=== PATIENT | female | born 2000 | race Caucasian/White ===

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

== ENCOUNTER 2018-07-11 17:52 | Emergency (ER) | payer MEDICAID ==
[2018-07-11] MEDS ORDERED: AMOX/CLAV 875 MG/125 MG TABLET PO STA (19:09)
--- NOTE | 2018-07-11 19:11 | ED Physician Documentation ---
PD HPI SKIN - Stated complaint Stated Complaint: LUMP UNDER L ARM - Chief complaint Chief Complaint: Wound - History obtained from History obtained from: Patient - History of Present Illness Timing - onset: Today (Painful lump in the left axilla today. She has a history of cystic acne. No possibility of .) Review of Systems Constitutional: reports: Reviewed and negative Nose: reports: Reviewed and negative Throat: reports: Reviewed and negative PD PAST MEDICAL HISTORY - Past Medical History Past Medical History: No - Past Surgical History Past Surgical History: No - Present Medications Home Medications: Ambulatory Orders Medication Instructions Recorded Confirmed Amox/Clav 875/125 [Augmentin 1 tab PO BID 10 Days #20 tablet 07/11/18 875/125] Levothyroxine [Synthroid] 150 mcg PO QDAC 07/11/18 07/11/18 - Allergies Allergies/Adverse Reactions: Allergies Allergy/AdvReac Type Severity Reaction Status Date / Time No Known Drug Allergies Allergy Verified 07/11/18 18:00 - Social History Does the pt smoke?: Yes Smoking Status: Current every day smoker Does the pt drink ETOH?: No Does the pt have substance abuse?: No - Immunizations Immunizations are current?: Yes - POLST Patient has POLST: No PD ED PE NORMAL - Vitals Vital signs reviewed: Yes - General General: Alert and oriented X 3, No acute distress - Derm Derm: Other (In the left axilla there is an open draining cyst which is tiny, too small for formal incision and drainage, small amount of material was expressed and sent for culture during exam.) - Neuro Neuro: Alert and oriented X 3, Normal speech Results - Vitals Vitals: Vital Signs - 24 hr 07/11/18 17:58 Temperature 36.2 C L Heart Rate 80 Respiratory 15 Rate Blood Pressure 149/91 H O2 Saturation 99 Oxygen O2 Source Room air Departure - Departure Disposition: Home, Self Care Clinical Impression: Sebaceous cyst of left axilla Condition: Good Record reviewed to determine appropriate education?: Yes Instructions: ED Staph Infec Abx Tx Only Prescriptions: Amox/Clav 875/125 [Augmentin 875/125] 1 tab PO BID 10 Days #20 tablet Comments: Return for reevaluation if it gets bigger or worsens. Especially if you run a fever. We are performing a wound culture, the results should be done in 48-72 hours. If antibiotic change is necessary we will call you. Return if worse in the meantime, especially if you develop increased pain, fevers, cannot keep down the medication. Otherwise follow-up with your physician in approximately 2-3 days. Your blood pressure was elevated today on check into the emergency department. This does not mean that you have hypertension, it is a common phenomenon to come to the emergency department and have elevated blood pressure. I recommend that you see your primary care physician within the week to have it rechecked when you are feeling better.
[2018-07-11 19:27] VITALS: BP 118/68
== END 2018-07-11 19:28 | disposition home or self-care (01) ==
LOC: ED 17:52
DX: L72.3 Sebaceous cyst (principal); R03.0 Elevated blood-pressure reading, without diagnosis of hypertension; F17.200 Nicotine dependence, unspecified, uncomplicated
CPT/HCPCS: 87070; 87205; 99283; A9270

== ENCOUNTER 2018-09-20 16:05 | Emergency (ER) | payer MEDICAID ==
--- NOTE | 2018-09-20 16:18 | ED Physician Documentation ---
History of Present Illness - Stated complaint Stated Complaint: FEM - Chief complaint Chief Complaint: General - History obtained from History obtained from: Patient - History of Present Illness Timing: Today (Urinary frequency and dysuria started today without flank pain, fevers, or nausea. Feels like a bladder infection. She also has hematuria. Last UTI was a little over a year ago.) Review of Systems Constitutional: denies: Fever, Chills GI: denies: Abdominal Pain, Nausea, Vomiting PD PAST MEDICAL HISTORY - Past Surgical History Past Surgical History: No - Present Medications Home Medications: Ambulatory Orders Medication Instructions Recorded Confirmed Amox/Clav 875/125 [Augmentin 1 tab PO BID 10 Days #20 tablet 07/11/18 875/125] Levothyroxine [Synthroid] 150 mcg PO QDAC 07/11/18 07/11/18 Nitrofurantoin Monohyd/M-Cryst 100 mg PO BID #10 capsule 09/20/18 [Macrobid 100 mg Capsule] Phenazopyridine HCl [Pyridium] 200 mg PO TID PRN #6 tablet 09/20/18 - Allergies Allergies/Adverse Reactions: Allergies Allergy/AdvReac Type Severity Reaction Status Date / Time No Known Drug Allergies Allergy Verified 09/20/18 16:11 - Social History Does the pt smoke?: Yes Smoking Status: Current every day smoker Does the pt drink ETOH?: No Does the pt have substance abuse?: No - Immunizations Immunizations are current?: Yes - POLST Patient has POLST: No PD ED PE NORMAL - Vitals Vital signs reviewed: Yes - General General: Alert and oriented X 3, No acute distress - Abdomen Abdomen: Soft, Non tender - Back Back: No CVA TTP - Neuro Neuro: Alert and oriented X 3, Normal speech Results - Vitals Vitals: Vital Signs - 24 hr 09/20/18 16:10 Temperature 36.8 C Heart Rate 86 Respiratory 16 Rate Blood Pressure 132/79 H O2 Saturation 96 Oxygen O2 Source Room air - Labs Labs: Laboratory Tests 09/20/18 16:15 Urine Color RED/BLOODY Urine Clarity BLOODY Urine pH 6.0 Ur Specific [place] >=1.030 H Urine Protein 100 H Urine Glucose (UA) NEGATIVE Urine Ketones NEGATIVE Urine Occult Blood LARGE H Urine Nitrite NEGATIVE Urine Bilirubin NEGATIVE Urine Urobilinogen 0.2 (NORMAL) Ur Leukocyte Esterase NEGATIVE Urine RBC TNTC H Urine WBC 0-3 Ur Squamous Epith Cells RARE Squamous Urine Bacteria None Seen Ur Microscopic Review INDICATED Urine Culture Comments NOT INDICATED Urine HCG, Qual NEGATIVE Departure - Departure Disposition: 01 Home, Self Care Clinical Impression: Hemorrhagic cystitis Condition: Good Instructions: ED UTI Cystitis Female Prescriptions: Nitrofurantoin Monohyd/M-Cryst [Macrobid 100 mg Capsule] 100 mg PO BID #10 capsule Phenazopyridine HCl [Pyridium] 200 mg PO TID PRN #6 tablet PRN Reason: dysuria Comments: We will culture your urine, the results should be done in 48-72 hours. If an antibiotic change is necessary we will call you. Return if worse in the meantime, especially if you develop increasing flank pain, fevers, or cannot keep down the medication. Follow-up with your doctor in 3-5 days for recheck. Given the volume of blood in your urine I recommend that he/she run a repeat urinalysis to make sure the blood is cleared up. Your blood pressure was elevated today on check into the emergency department. This does not mean that you have hypertension, it is a common phenomenon to come to the emergency department and have elevated blood pressure. I recommend that you see your primary care physician within the week to have it rechecked when you are feeling better.
[2018-09-20 16:48] LABS: BILIRUBIN,URINE NEGATIVE (NEGATIVE); GLUCOSE, URINE (UA) NEGATIVE (NEGATIVE); KETONES,URINE (UA) NEGATIVE (NEGATIVE); LEUKOCYTE ESTERASE, URINE NEGATIVE (NEGATIVE); NITRITE,URINE NEGATIVE (NEGATIVE); OCCULT BLOOD,URINE LARGE (NEGATIVE); PROTEIN,URINE 100 mg/dL (NEGATIVE); UROBILINOGEN,URINE 0.2 (NORMAL) E.U./dL (NORMAL)
[2018-09-20 16:53] LABS: BACTERIA,URINE None Seen /HPF (None Seen); CLARITY,URINE BLOODY (CLEAR); HCG UR QUAL NEGATIVE; RBC,URINE TNTC /HPF (0-5); SQUAMOUS EPITHELIAL CELL,UR RARE Squamous (<= Few)
[2018-09-20] MEDS ORDERED: PHENAZOPYRIDINE 100 MG TABLET PO STA (16:54)
[2018-09-20] MEDS ORDERED: NITROFURANTOIN MACRO 100 MG CAPSULE PO STA (16:54)
[2018-09-20 17:04] VITALS: BP 124/68
== END 2018-09-20 17:05 | disposition home or self-care (01) ==
LOC: ED 16:05
DX: N30.91 Cystitis, unspecified with hematuria (principal); R03.0 Elevated blood-pressure reading, without diagnosis of hypertension; F17.200 Nicotine dependence, unspecified, uncomplicated
CPT/HCPCS: 81001; 81025; 99283; A9270; 81003; 87086

== ENCOUNTER 2019-07-08 15:10 | Outpatient (CLI) | payer SELFPAY ==
[2019-07-08 19:47] LABS: THYROID STIMULATING HORMONE 2.96 uIU/mL (0.34-5.60)
[2019-07-08 19:49] LABS: FREE T4 (FREE THYROXINE) 0.79 ng/dL (0.58-1.64)
== END 2019-07-08 23:59 | disposition home or self-care (01) ==
LOC: LAB.N 15:10
PROVIDERS: ATTEND Physician Assistant Medical
DX: E06.3 Autoimmune thyroiditis (principal)
CPT/HCPCS: 36415; 84439; 84443

== ENCOUNTER 2019-11-08 02:52 | Emergency (ER) | payer SELFPAY ==
--- NOTE | 2019-11-08 02:56 | ED Physician Documentation ---
History of Present Illness - Stated complaint Stated Complaint: EYE INJ - History obtained from History obtained from: Patient (the patient is a 19 Y/O f who p/w a cc of scratched by her bunny to the right side of her face near the right eye but no involvement of the eye, She states her tetanus status is up-to-date.She denies any other complaints she denies any irritation of the eye or foreign body in sensation of the eye she reports This scratch to the right side of her face.This incident happened about 1 hour prior to arrival.) Review of Systems Constitutional: reports: Reviewed and negative Eyes: reports: Reviewed and negative Ears: reports: Reviewed and negative Nose: reports: Reviewed and negative Throat: reports: Reviewed and negative Cardiac: reports: Reviewed and negative Respiratory: reports: Reviewed and negative GI: reports: Reviewed and negative : reports: Reviewed and negative Skin: reports: Abrasion (s) Musculoskeletal: reports: Reviewed and negative Neurologic: reports: Reviewed and negative Psychiatric: reports: Reviewed and negative Endocrine: reports: Reviewed and negative Immunocompromised: reports: Reviewed and negative PD PAST MEDICAL HISTORY - Past Medical History Cardiovascular: None Respiratory: None Neuro: None Endocrine/Autoimmune: HyPOthyroidism GI: 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 HEENT: None Psych: None Musculoskeletal: None Derm: None - Past Surgical History Past Surgical History: No - Present Medications Home Medications: Ambulatory Orders Medication Instructions Recorded Confirmed Bacitracin 1 gm TOP BID 7 Days #1 tube 11/08/19 - Allergies Allergies/Adverse Reactions: Allergies Allergy/AdvReac Type Severity Reaction Status Date / Time No Known Drug Allergies Allergy Verified 11/08/19 03:01 - Social History Does the pt smoke?: Yes Smoking Status: Current every day smoker Does the pt drink ETOH?: No Does the pt have substance abuse?: No - Immunizations Immunizations are current?: Yes - POLST Patient has POLST: No PD ED PE NORMAL - Vitals Vital signs reviewed: Yes - General General: Alert and oriented X 3, No acute distress, Well developed/nourished - HEENT HEENT: Atraumatic, PERRL, EOMI, Ears normal, Moist mucous membranes, Pharynx benign, Dentition benign, Other - Neck Neck: Supple, no meningeal sign, No JVD - Cardiac Cardiac: RRR, Strong equal pulses - Respiratory Respiratory: No respiratory distress, Clear bilaterally - Abdomen Abdomen: Normal bowel sounds, Soft, Non tender, Non distended - Back Back: No CVA TTP, No spinal TTP - Derm Derm: Normal color, Warm and dry, No rash, Other (There is a 5 mm abrasion approximately 1 cm lateral to the right lateral canthus of the eye.There is no involvement of the eye or the orbit or the eyelid.The area is mildly erythematous there is no streaking there is no crepitus there is no signs of infection.) - Extremities Extremities: No deformity - Neuro Neuro: Alert and oriented X 3 - Psych Psych: Normal mood, Normal affect Results - Vitals Vitals: Vital Signs - 24 hr 11/08/19 02:55 Temperature 36.5 C Heart Rate 89 Respiratory 16 Rate Blood Pressure 116/75 O2 Saturation 97 Oxygen O2 Source Room air PD MEDICAL DECISION MAKING - ED course Complexity details: other (Abrasion from a bony scratch that is her known bony lateral to the right eye there is no involvement of the eye the exam is unremarkable with there is a very superficial less than 5 mm abrasion lateral to the lateral canthus of the right eye the area was thoroughly cleaned and irrigated and bacitracin was applied a prescription will be provided for bacitracin where the patient may use a topical [id number] and biotic such as Neosporin. She should follow-up with her primary care provider on Friday her tetanus is updated she should return to the emergency department with any concerns.) Departure - Departure Disposition: 01 Home, Self Care Clinical Impression: Scratch of face Qualifiers: Encounter type: initial encounter Qualified Code(s): S00.81XA - Abrasion of other part of head, initial encounter Condition: Good Instructions: ED Abrasion Follow-Up: Shawn Anderson PA-C [Primary Care Provider] - Tomorrow Prescriptions: Bacitracin 1 gm TOP BID 7 Days #1 tube
[2019-11-08 03:01] VITALS: BP 116/75
[2019-11-08] MEDS ORDERED: BACITRACIN ZINC OINT 1 PACKET TOP STA (03:03)
== END 2019-11-08 03:13 | disposition home or self-care (01) ==
LOC: ED 02:52
DX: S00.211A Abrasion of right eyelid and periocular area, initial encounter (principal); W55.82XA Struck by other mammals, initial encounter; F17.200 Nicotine dependence, unspecified, uncomplicated
CPT/HCPCS: 99282; 99283; A9270

== ENCOUNTER 2020-07-25 10:00 | Outpatient (CLI) | payer OTHER | END 2020-07-25 10:01 | disposition home or self-care (01) | LOC: COV 10:00 | PROVIDERS: ATTEND Family Medicine | DX: R50.9 Fever, unspecified (principal); R53.83 Other fatigue; J02.9 Acute pharyngitis, unspecified; R43.8 Other disturbances of smell and taste; R09.81 Nasal congestion; R11.0 Nausea; Z20.828 Contact with and (suspected) exposure to other viral communicable diseases ==

== ENCOUNTER 2020-09-29 11:01 | Outpatient (CLI) | payer SELFPAY ==
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
== END 2020-09-29 11:02 ==
LOC: EMS 11:01
PROVIDERS: ATTEND Surgery
DX: Z04.1 Encounter for examination and observation following transport accident (principal)

== ENCOUNTER 2020-12-10 16:35 | Outpatient (CLI) | payer OTHER ==
--- NOTE | 2020-12-10 17:52 | Ultrasound Report ---
PROCEDURE: OB First Trimester w/TV INDICATIONS: POSITIVE TEST OUTSIDE/PRIOR DATING DATA: Last menstrual period (LMP): 10/04/2020. LMP-based estimated date of delivery (JESUS): 07/11/2021. First dating scan (date and location): 12/10/2020. Estimated date of delivery (JESUS) from first dating scan: 07/15/2021. TECHNIQUE: Real-time scanning was performed of the fetus and maternal pelvic organs, with image documentation. Endovaginal scanning was also performed to better visualize the fetus and maternal ovaries. COMPARISON: None FINDINGS: Embryo: There is single intrauterine gestational sac with fetus and yolk sac seen. heart rate is 171 bpm. [place]-rump length measures 2.3 cm. Estimated gestational age based on current study is 9 weeks 0 day. No perigestational hemorrhage is seen. Measurement variability in dating: +/- 4 weeks by LMP, +/- 7 days by mean sac diameter (use before 6 weeks gestation if crown-rump length not able to be measured), +/- 5 days by crown-rump length (6-12 weeks gestation). Maternal organs: Right ovary measures 2.7 x 1.5 x 2.1 cm in size. Left ovary measures 4.3 x 3.6 x 3.9 cm in size. Simple appearing left ovarian cyst measures 2.9 x 2.5 x 2.8 cm in size is seen. No solid -appearing ovarian lesion. No ectopic gestational sac. IMPRESSION: 1. Single live intrauterine with fetus and yolk sac seen. heart rate is 171 bpm. Susan mated gestational age is 9 weeks 0 day. 2. No perigestational hemorrhage. 3. Simple appearing cyst is seen in left ovary as above. Reviewed by: Jimbo London MD on 12/10/2020 5:51 PM PDT Approved by: Jimbo London MD on 12/10/2020 5:51 PM PDT Station ID: [id number]
== END 2020-12-10 16:36 | disposition home or self-care (01) ==
LOC: DI 16:35
PROVIDERS: ATTEND Nurse Practitioner Obstetrics & Gynecology
DX: Z32.01 Encounter for pregnancy test, result positive (principal)

== ENCOUNTER 2020-12-14 08:00 | Outpatient (CLI) | payer OTHER ==
[2020-12-15 20:53] LABS: CHLAMYDIA TRACHOMATIS DNA NEGATIVE (NEGATIVE); NEISSERIA GONORRHOEAE DNA NEGATIVE (NEGATIVE); TRICHOMONAS VAGINALIS DNA NEGATIVE (NEGATIVE)
== END 2020-12-14 23:59 | disposition home or self-care (01) ==
LOC: LAB.R 08:00
PROVIDERS: ATTEND Obstetrics & Gynecology
DX: Z11.3 Encounter for screening for infections with a predominantly sexual mode of transmission (principal)
CPT/HCPCS: 87491; 87591; 87661

== ENCOUNTER 2020-12-14 12:32 | Outpatient (CLI) | payer OTHER | END 2020-12-14 12:33 | disposition home or self-care (01) | LOC: LAB 12:32 | PROVIDERS: ATTEND Obstetrics & Gynecology | DX: Z33.2 Encounter for elective termination of pregnancy (principal) | CPT/HCPCS: 36415; 84702; 86850; 86900; 86901 ==

== ENCOUNTER 2021-01-01 16:03 | Outpatient (CLI) | payer OTHER | END 2021-01-01 16:04 | disposition home or self-care (01) | LOC: LAB 16:03 | PROVIDERS: ATTEND Obstetrics & Gynecology | DX: Z33.2 Encounter for elective termination of pregnancy (principal) | CPT/HCPCS: 36415; 84702 ==

== ENCOUNTER 2021-12-13 20:10 | Emergency (ER) | payer BC, OTHER ==
[2021-12-13 20:24] VITALS: BP 146/101
--- NOTE | 2021-12-13 20:44 | ED Physician Documentation ---
PD HPI OPHTHO - Stated complaint Stated Complaint: RT EYE IRRITATION - Chief complaint Chief Complaint: Heent - History obtained from History obtained from: Patient - History of Present Illness Timing - onset: Today Timing - duration: Days (1) Timing - details: Gradual onset Pain level max: 5 Pain level now: 3 Location: Right Quality / character: Itching, Burning, Aching Associated symptoms: Redness, Tearing, FB sensation. No: Discharge, Matting, Photophobia, Double vision, Decreased vision, Loss of vision Contributing factors: No: Blunt trauma, Wears contacts - Additional information Additional information: Patient thinks perhaps a hair from her rabbit got in her eye. 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 HEENT: None Psych: None Musculoskeletal: None Derm: None - Past Surgical History Past Surgical History: No - Present Medications Home Medications: Ambulatory Orders Medication Instructions Recorded Confirmed Bacitracin 1 gm TOP BID 7 Days #1 tube 11/08/19 oxyCODONE [Roxicodone] 2.5 - 5 mg PO Q4H PRN #10 tablet 12/15/20 - Allergies Allergies/Adverse Reactions: Allergies Allergy/AdvReac Type Severity Reaction Status Date / Time No Known Drug Allergies Allergy Verified 11/08/19 03:01 - Social History Does the pt smoke?: Yes Smoking Status: Current every day smoker Does the pt drink ETOH?: No Does the pt have substance abuse?: No - Immunizations Immunizations are current?: Yes - POLST Patient has POLST: No PD ED PE NORMAL - Vitals Vital signs reviewed: Yes - General General: Alert and oriented X 3, No acute distress - HEENT HEENT: Moist mucous membranes, Other (L eye is normal. Right eye has conjunctival injection. No foreign body visible. Eyelids everted. No fluorescein uptake.) - Neck Neck: Supple, no meningeal sign - Derm Derm: Warm and dry - Neuro Neuro: Alert and oriented X 3 - Psych Psych: Normal mood, Normal affect Results - Vitals Vitals: Vital Signs - 24 hr 12/13/21 12/13/21 20:21 21:02 Temperature 36.5 C Heart Rate 66 70 Respiratory 14 14 Rate Blood Pressure 146/101 H O2 Saturation 98 Oxygen O2 Source Room air PD MEDICAL DECISION MAKING - ED course Complexity details: considered differential, d/w patient ED course: Patient likely had a right eye irritants earlier that she has now flushed out. I do not see any retained foreign bodies or corneal abrasions. We will trial her on Zaditor eyedrops for home. No evidence of infection. Patient counseled regarding signs and symptoms for which I believe and urgent re-evaluation would be necessary. Patient with good understanding of and agreement to plan and is comfortable going home at this time This document was made in part using voice recognition software. While efforts are made to proofread this document, sound alike and grammatical errors may occur. Departure - Departure Disposition: 01 Home, Self Care Clinical Impression: Acute conjunctivitis, right eye Qualifiers: Acute conjunctivitis type: atopic Qualified Code(s): H10.11 - Acute atopic conjunctivitis, right eye Condition: Good Instructions: ED Allergic Conjunctivitis Follow-Up: your,doctor as needed [Other] Comments: I would use artificial tears and zaditor eye drops at home. Return if you worsen. I do not see any foreign body today or scratches on exam. Discharge Date/Time: 12/13/21 21:02
== END 2021-12-13 21:02 | disposition home or self-care (01) ==
LOC: ED 20:10
DX: H10.11 Acute atopic conjunctivitis, right eye (principal); F17.200 Nicotine dependence, unspecified, uncomplicated
CPT/HCPCS: 99281; 99282

== ENCOUNTER 2022-01-25 12:31 | Emergency (ER) | payer BC ==
[2022-01-25 12:38] VITALS: BP 151/94
[2022-01-25 12:50] LABS: BILIRUBIN,URINE NEGATIVE (NEGATIVE); GLUCOSE, URINE (UA) NEGATIVE (NEGATIVE); KETONES,URINE (UA) NEGATIVE (NEGATIVE); LEUKOCYTE ESTERASE, URINE LARGE (NEGATIVE); NITRITE,URINE POSITIVE (NEGATIVE); OCCULT BLOOD,URINE LARGE (NEGATIVE); PROTEIN,URINE 100 mg/dL (NEGATIVE); UROBILINOGEN,URINE 1 (NORMAL) E.U./dL (NORMAL)
[2022-01-25 12:51] LABS: HCG UR QUAL NEGATIVE
--- NOTE | 2022-01-25 13:02 | ED Physician Documentation ---
PD HPI FEMALE - Stated complaint Stated Complaint: FEMALE - Chief complaint Chief Complaint: UTI - History obtained from History obtained from: Patient - History of Present Illness Timing - onset: Today Timing - duration: Hours Timing - details: Gradual onset, Still present Associated symptoms: Dysuria, Urinary frequency, Hematuria Contributing factors: No: Similar symptoms before: Diagnosis (UTI) Recently seen: Not recently seen - Additional information Additional information: Spent the day in bed yesterday and today she has symptoms of UTI. Frequency, urgency and dysuria. No vomiting + back pain lower back. Review of Systems Constitutional: denies: Fever Nose: denies: Congestion Throat: denies: Sore throat Respiratory: denies: Cough GI: denies: Abdominal Pain, Nausea, Vomiting, Constipation, Diarrhea : reports: Dysuria, Frequency Skin: denies: Rash Musculoskeletal: reports: Back pain. 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 HEENT: None Psych: None Musculoskeletal: None Derm: None - Past Surgical History Past Surgical History: No - Present Medications Home Medications: Ambulatory Orders Medication Instructions Recorded Confirmed Bacitracin 1 gm TOP BID 7 Days #1 tube 11/08/19 oxyCODONE [Roxicodone] 2.5 - 5 mg PO Q4H PRN #10 tablet 12/15/20 Nitrofurantoin [Macrobid] 100 mg PO BID #10 cap 01/25/22 Phenazopyridine HCl [Pyridium] 200 mg PO TID PRN #6 tablet 01/25/22 - Allergies Allergies/Adverse Reactions: Allergies Allergy/AdvReac Type Severity Reaction Status Date / Time No Known Drug Allergies Allergy Verified 01/25/22 12:35 - Social History Does the pt smoke?: Yes Smoking Status: Current every day smoker Does the pt drink ETOH?: No Does the pt have substance abuse?: No - Immunizations Immunizations are current?: Yes - POLST Patient has POLST: No PD ED PE NORMAL - Vitals Vital signs reviewed: Yes (hypertensive ) - General General: Alert and oriented X 3, No acute distress, Well developed/nourished - HEENT HEENT: Atraumatic, PERRL, EOMI - Neck Neck: Supple, no meningeal sign, No bony TTP - Cardiac Cardiac: RRR, No murmur - Respiratory Respiratory: No respiratory distress, Clear bilaterally - Abdomen Abdomen: Soft, Non distended, No organomegaly (suprapubic pain to palpation), Other - Back Back: No CVA TTP, No spinal TTP - Derm Derm: Normal color, Warm and dry, No rash - Extremities Extremities: No deformity, No edema - Neuro Neuro: Alert and oriented X 3, 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, No motor deficit, No sensory deficit, Normal speech Eye Opening: Spontaneous Motor: Obeys Commands Verbal: Oriented GCS Score: 15 - Psych Psych: Normal mood, Normal affect Results - Vitals Vitals: Vital Signs - 24 hr 01/25/22 12:33 Temperature 37.3 C Heart Rate 79 Respiratory 20 Rate Blood Pressure 151/94 H O2 Saturation 100 Oxygen O2 Source Room air - Labs Labs: Laboratory Tests 01/25/22 12:43 Urine Color RED/BLOODY Urine Clarity CLOUDY Urine pH 6.0 Ur Specific [place] 1.020 Urine Protein 100 H Urine Glucose (UA) NEGATIVE Urine Ketones NEGATIVE Urine Occult Blood LARGE H Urine Nitrite POSITIVE H Urine Bilirubin NEGATIVE Urine Urobilinogen 1 (NORMAL) Ur Leukocyte Esterase LARGE H Urine RBC TNTC H Urine WBC >25 H Ur Epithelial Cells FEW Transitional Ur Squamous Epith Cells RARE Squamous Urine Bacteria Rare Urine Casts 0-2 WBC Casts Ur Microscopic Review INDICATED Urine Culture Comments INDICATED Urine HCG, Qual NEGATIVE PD MEDICAL DECISION MAKING - ED course Complexity details: reviewed results, re-evaluated patient, considered differential, d/w patient ED course: 21 y/o female with UTI symptoms appears to have UTI on evaluation of the urine. She has had similar and had success with treatment with macrobid. Prior culture grew Staph saprophyticus. Departure - Departure Disposition: 01 Home, Self Care Clinical Impression: Urinary tract infection Qualifiers: Urinary tract infection type: acute cystitis Hematuria presence: with hematuria Qualified Code(s): N30.01 - Acute cystitis with hematuria Condition: Stable Instructions: ED UTI Cystitis Female Follow-Up: Tyshawn Batres MD [Primary Care Provider] - Prescriptions: Nitrofurantoin [Macrobid] 100 mg PO BID #10 cap Phenazopyridine HCl [Pyridium] 200 mg PO TID PRN #6 tablet PRN Reason: dysuria Comments: Shagufta, today it looks like another UTI. We have e-scribed the antibiotic "Macrobid" to the community pharmacy here in [place]. The expectation is for prompt and continued improvement. Pyridium has also been escribed for symptoms. (the stuff that makes your urine turn orange) You should only need to take this for about one day. Discharge Date/Time: 01/25/22 13:52
[2022-01-25 13:15] LABS: CLARITY,URINE CLOUDY (CLEAR); RBC,URINE TNTC /HPF (0-5); SQUAMOUS EPITHELIAL CELL,UR RARE Squamous (<= Few); WBC,URINE >25 /HPF (0-5)
[2022-01-25 13:16] LABS: BACTERIA,URINE Rare /HPF (None Seen); CASTS, URINE 0-2 WBC Casts /LPF; EPITHELIAL CELLS,UR FEW Transitional /HPF (<= Few)
== END 2022-01-25 13:52 | disposition home or self-care (01) ==
LOC: ED 12:31
DX: N30.01 Acute cystitis with hematuria (principal); F17.200 Nicotine dependence, unspecified, uncomplicated
CPT/HCPCS: 81001; 81003; 81025; 87086; 87181; 99282; 99283